=== PATIENT | female | born 1970 | race Hispanic/Latino ===

== ENCOUNTER 2022-12-29 07:16 | Emergency (ER) | payer BC ==
[~2022-12-29] VITALS: Ht 160 cm; Wt 72.0 kg
[2022-12-29] VITALS (23 sets, daily range): BP systolic 97–146; BP diastolic 52–90
[2022-12-29 08:04] LABS: BASO% 1.4 % (0-3); EOS% 2.1 % (0-8); HEMATOCRIT 30.1 % (37.0-47.0); HEMOGLOBIN 9.1 g/dl (12.0-16.0); IMMATURE GRANULOCYTES 0.3 % (0.0-5.0); LYMPH% 49.1 % (15-41); MEAN CELL VOLUME 75.3 fL CALC (80.0-100.0); MEAN CORPUSCULAR HGB 22.8 pG CALC (26.0-32.0); MEAN CORPUSCULAR HGB CONC 30.2 g/dL CAL (32.0-36.0); MONO% 6.2 % (2-13); NEUT# 1.18 thou/uL (2.00-7.15); NEUT% 40.9 % (42-76); RED CELL DISTRI WIDTH 18.8 % (11.5-15.5)
[2022-12-29 08:07] LABS: URINE BILIRUBIN - DIPSTICK Negative (NEGATIVE); URINE BLOOD DIPSTICK Negative (NEGATIVE); URINE GLUCOSE - DIPSTICK Negative (NEGATIVE); URINE KETONE Negative (NEGATIVE); URINE LEUK ESTERASE Negative (NEGATIVE); URINE NITRITE - DIPSTICK Negative (Negative); URINE PROTEIN - DIPSTICK Negative (NEG-TRACE); URINE UROBILINOGEN - DIPSTICK 0.2 E.U./dL (0.2)
[2022-12-29 08:14] LABS: ALKALINE PHOSPHATASE 52 u/l (38-126); AMYLASE 59 u/l (30-110); ANION GAP 15 (6-22 (CALC)); BILIRUBIN, TOTAL 0.3 mg/dL (0.02-1.3); BUN 8 mg/dL (7-17); BUN/CREATININE RATIO 16 (12-20 (CALC)); CARBON DIOXIDE 17 mmol/l (22-30); CHLORIDE 109 mmol/l (95-108); CREATININE 0.5 mg/dL (0.5-1.0); GFR FOR AFR.AMER. > 60 ML/MIN (>=60 (CALC)); GFR OTHER RACES > 60 ML/MIN (>=60 (CALC)); LIPASE 223 u/l (23-300); POTASSIUM 3.2 mmol/l (3.5-5.1); SGOT/AST 47 u/l (14-36); SODIUM 138 mmol/l (137-146); TOTAL PROTEIN 7.4 g/dL (6.3-8.2)
[2022-12-29 08:18] LABS: URINE COLOR Yellow
== END 2022-12-29 14:32 | disposition home or self-care (01) | DRG 392 ==
LOC: ED 07:16
PROVIDERS: Family Medicine
DX: K59.00 Constipation, unspecified (principal); D25.9 Leiomyoma of uterus, unspecified; T78.40XA Allergy, unspecified, initial encounter; I10 Essential (primary) hypertension; X58.XXXA Exposure to other specified factors, initial encounter